=== PATIENT | female | born 1990 | race Caucasian/White ===

== ENCOUNTER 2018-01-17 15:28 | Emergency (ER) | payer BC ==
[~2018-01-17] VITALS: Ht 170.2 cm; Wt 72.1 kg
[~2018-01-17 15:28] MED LIST: MTR600X PO; PRENTAB26 PO
[2018-01-17 15:34] VITALS: TEMP 36.9; Ht 170.2 cm; Wt 72.1 kg
[2018-01-17] MEDS ORDERED: KETOROLAC TROMETHAMINE 30 MG/ML VIAL IV STA (16:42)
[2018-01-17] MEDS ORDERED: SODIUM CHLORIDE 0.9% 1000ML 1,000 ML IV SCH (16:42)
[2018-01-17] MEDS ORDERED: SODIUM CHLORIDE 0.9% 1000ML 1,000 ML IV STA (16:42)
[2018-01-17 17:00] LABS: BASO % 0.2 %; BASO ABS # 0.01 K/uL (0-0.2); EOS % 0.7 %; EOS ABS # 0.04 K/uL (0-0.5); HEMOGLOBIN 14.7 g/dL (12.0-16.0); IG# 0.01 K/uL (0.00-0.02); LYMPH % 26.3 %; LYMPH ABS # 1.49 K/uL (1.2-3.4); MEAN CELL VOLUME 91.7 fL (80-100); MEAN CORPUSCULAR HEMOGLOBIN 32.1 pg (25-34); MEAN PLATELET VOLUME 10.5 fL (7.4-10.4); MONO % 8.5 %; MONO ABS # 0.48 K/uL (0.11-0.59); NEUT % 64.1 %; NEUT ABS # 3.63 K/uL (1.4-6.5); PLATELET COUNT 215 K/uL (130-400); RED CELL DISTRIBUTION WIDTH CV 12.5 % (11.5-14.5); RED CELL DISTRIBUTION WIDTH SD 42.3 fL (36.4-46.3); WHITE BLOOD COUNT 5.66 K/uL (4.8-10.8)
[2018-01-17] MEDS ORDERED: MULT-506 PO (17:06)
[2018-01-17] MEDS ORDERED: NORETAB29 PO (17:06)
--- NOTE | 2018-01-17 17:13 | DIAGNOSTIC IMAGING REPORT ---
CHEST ONE VIEW PORTABLE CLINICAL HISTORY: 27 years-old Female presenting with Stroke. TECHNIQUE: Portable upright AP view of the chest was obtained. COMPARISON: None. FINDINGS: Cardiomediastinal silhouette normal. No focal opacity. No large effusion or pneumothorax. Osseous structures normal. Upper abdomen normal. IMPRESSION: 1. No acute cardiopulmonary disease. Electronically signed by: Boy Hawthorne M.D. 01/17/2018 5:12 PM Dictated Date/Time: 01/17/2018 5:11 PM
[2018-01-17 17:21] LABS: PTT PATIENT 23.9 SECONDS (21.0-31.0)
[2018-01-17 17:24] LABS: BLOOD UREA NITROGEN 18 mg/dl (7-18); CALCIUM 8.9 mg/dl (8.5-10.1); CARBON DIOXIDE 26 mmol/L (21-32); CREATININE 1.09 mg/dl (0.60-1.20); GLUCOSE 85 mg/dl (70-99); POTASSIUM 3.5 mmol/L (3.5-5.1); SODIUM 138 mmol/L (136-145)
[2018-01-17 17:29] LABS: CKMB 5.9 ng/ml (0.5-3.6)
--- NOTE | 2018-01-17 17:29 | DIAGNOSTIC IMAGING REPORT ---
CT HEAD WITHOUT CONTRAST (CT) CLINICAL HISTORY: Stroke RIGHT-SIDED NUMBNESS. SPEECH DIFFICULTY. COMPARISON STUDY: No previous studies for comparison. TECHNIQUE: Axial CT of the brain is performed from the vertex to the skull base. IV contrast was not administered for this examination. A dose lowering technique was utilized adhering to the principles of ALARA. CT DOSE: 537.48 mGy.cm FINDINGS: No intra or extra-axial mass lesions are visualized. There is no CT evidence of acute cortical infarction. There is no evidence of midline shift. There is no acute hemorrhage. No calvarial fractures are visualized. There is no evidence of pathologic ventricular dilatation. There is sphenoid sinus mucosal thickening. IMPRESSION: Sphenoid sinus mucosal thickening. Otherwise normal noncontrast head CT. Electronically signed by: Camron Cerna M.D. 01/17/2018 5:28 PM Dictated Date/Time: 01/17/2018 5:27 PM
[2018-01-17 21:49] VITALS: BP 116/70; PULSE 80; O2SAT 100
--- NOTE | 2018-01-17 21:56 | DIAGNOSTIC IMAGING REPORT ---
BRAIN WITHOUT CONTRAST CLINICAL HISTORY: 27 years-old Female presenting with r sided paraesthesias . TECHNIQUE: Multisequence, multiplanar MR imaging of the brain was performed without the use of intravenous contrast. IV contrast: None. COMPARISON: Noncontrast CT head performed earlier the same day. FINDINGS: Ventricles and sulci normal in size. Brain parenchyma normal in appearance with preserved hampton-white differentiation. No mass effect or midline shift. No restricted diffusion to suggest acute ischemia. No hemorrhage. No extra-axial fluid collection. T2 skull base flow voids preserved. Mucosal thickening in the sphenoid sinus is noted. Bone marrow signal intensity within the calvarium within normal limits. IMPRESSION: 1. No acute intracranial abnormality. Electronically signed by: Boy Hawthorne M.D. 01/17/2018 9:54 PM Dictated Date/Time: 01/17/2018 9:52 PM
--- NOTE | 2018-01-17 23:41 | EMERGENCY ROOM VISIT NOTE ---
History Report prepared by Xin: Cathie Onofre Under the Supervision of: Dr. Warner Yoon D.O. First contact with patient: 16:30 Chief Complaint: NEURO SYMPTOMS Stated Complaint: WHOLE RT SIDE NUMBNESS, LOSS OF SPEECH, NAUSEA, KRAMER Nursing Triage Summary: Pt ambulatory to triage with steady upright gait. Pt states, "I was cleaning a pts tooth and in the middle of it the entire right side of my body went numb. I couldn't talk. My right side of my lip went numb. I couldn't really see out of my right eye. It eventually went away in 15 mins. Now I have a dry mouth, nausea and h/a. This is the third time this has happened. In Jul last year I had a migraine. I thought it might be my control so they switched. It happened in Nov to the left side. Today was the worst." Has not been seen previously for sx. Pt speaking with clear speech in triage. A & O x 4. History of Present Illness The patient is a 27 year old female who presents to the Emergency Room with complaints of an episode of right sided numbness earlier today. The patient works as a dental hygienist. She was cleaning a patient's teeth when her right hand started going numb. Then the numbness spread throughout the right side of her body. The right side of her lips went numb. Then then started feeling faint like she might pass out. She was trying to speak, but the words would not come out. She was told she appeared pale. She drank some juice and the faint feeling passed. After 15 minutes, the numbness resolved. She then developed some blurred vision in her right eye and felt nauseous. These symptoms have resolved. She currently complains of a mild headache on the left side. She denies any weakness, chest pain, SOB, abdominal pain, nausea, vomiting, or urinary symptoms. She has experienced these symptoms 2 times before. She had the same symptoms on the left side while she was driving 2 months ago. She also had these symptoms 6 months ago. At that time her control pill was changed to Loestrin FE. Her last menstrual period was 2 weeks ago. Patient denies diabetes, hypertension, hyperlipidemia, CAD, history of sudden at a young age. She quit smoking 5 years ago. She denies any history of migraines. Source of History: patient Onset: earlier today Position: arm (right) Quality: numbness Timing: other (episodic) Associated Symptoms: + headache, + nausea (resolved), No chest pain, No SOB , No vomiting, No abdominal pain, No urinary symptoms, No weakness Review of Systems See HPI for pertinent positives & negatives. A total of 10 systems reviewed and were otherwise negative. Past Medical & Surgical Medical Problems: (1) Family History Diabetes mellitus Social History Smoking Status: Former Smoker Occupation Status: employed Current/Historical Medications Scheduled Multivitamin (Multivitamin), 1 TAB PO DAILY Norethindrone Acetate-Ethinyl (Lo Loestrin Fe), 1 TAB PO DAILY Allergies Coded Allergies: Sulfa Antibiotics (Verified Allergy, Mild, HIVES, 01/17/18) as a child Physical Exam Vital Signs Date Time Temp Pulse Resp B/P (MAP) Pulse Ox O2 Delivery O2 Flow Rate FiO2 01/17/18 21:49 80 15 116/70 100 Room Air 01/17/18 20:36 74 16 118/77 99 Room Air 01/17/18 18:54 94 20 122/74 100 Room Air 01/17/18 17:01 80 18 128/90 98 Room Air 01/17/18 17:01 64 18 112/72 01/17/18 16:37 80 01/17/18 15:34 36.9 105 18 147/95 98 Room Air Physical Exam GENERAL: Sitting up in bed, alert, well appearing, well nourished, no distress, non-toxic EYE EXAM: normal conjunctiva. PERRL and EOM's intact. OROPHARYNX: no exudate, no erythema, lips, buccal mucosa, and tongue normal and mucous membranes are moist NECK: supple, no nuchal rigidity, no adenopathy, non-tender LUNGS: Clear to auscultation. Normal chest wall mechanics HEART: no murmurs, S1 normal and S2 normal ABDOMEN: abdomen soft, non-tender, normo-active bowel sounds, no masses, no rebound or guarding. BACK: Back is symmetrical on inspection and there is no deformity, no midline tenderness, no CVA tenderness. SKIN: no rashes and no bruising UPPER EXTREMITIES: upper extremities are grossly normal. LOWER EXTREMITIES: No pitting edema. NEURO EXAM: Normal sensorium, cranial nerves II-XII intact, normal speech, no weakness of arms, no weakness of legs. No drift. Finger to nose intact. Gross sensation intact. Medical Decision & Procedures ER Provider Diagnostic Interpretation: Radiology results as stated below per my review and the radiologist's interpretation: CHEST ONE VIEW PORTABLE CLINICAL HISTORY: 27 years-old Female presenting with Stroke. TECHNIQUE: Portable upright AP view of the chest was obtained. COMPARISON: None. FINDINGS: Cardiomediastinal silhouette normal. No focal opacity. No large effusion or pneumothorax. Osseous structures normal. Upper abdomen normal. IMPRESSION: 1. No acute cardiopulmonary disease. Electronically signed by: Boy Hawthorne M.D. 01/17/2018 5:12 PM Dictated Date/Time: 01/17/2018 5:[address] HEAD WITHOUT CONTRAST (CT) CLINICAL HISTORY: Stroke RIGHT-SIDED NUMBNESS. SPEECH DIFFICULTY. COMPARISON STUDY: No previous studies for comparison. TECHNIQUE: Axial CT of the brain is performed from the vertex to the skull base. IV contrast was not administered for this examination. A dose lowering technique was utilized adhering to the principles of ALARA. CT DOSE: 537.48 mGy.cm FINDINGS: No intra or extra-axial mass lesions are visualized. There is no CT evidence of acute cortical infarction. There is no evidence of midline shift. There is no acute hemorrhage. No calvarial fractures are visualized. There is no evidence of pathologic ventricular dilatation. There is sphenoid sinus mucosal thickening. IMPRESSION: Sphenoid sinus mucosal thickening. Otherwise normal noncontrast head CT. Electronically signed by: Camron Cerna M.D. 01/17/2018 5:28 PM Dictated Date/Time: 01/17/2018 5:27 PM BRAIN WITHOUT CONTRAST CLINICAL HISTORY: 27 years-old Female presenting with r sided paraesthesias . TECHNIQUE: Multisequence, multiplanar MR imaging of the brain was performed without the use of intravenous contrast. IV contrast: None. COMPARISON: Noncontrast CT head performed earlier the same day. FINDINGS: Ventricles and sulci normal in size. Brain parenchyma normal in appearance with preserved hampton-white differentiation. No mass effect or midline shift. No restricted diffusion to suggest acute ischemia. No hemorrhage. No extra-axial fluid collection. T2 skull base flow voids preserved. Mucosal thickening in the sphenoid sinus is noted. Bone marrow signal intensity within the calvarium within normal limits. IMPRESSION: 1. No acute intracranial abnormality. Electronically signed by: Boy Hawthorne M.D. 01/17/2018 9:54 PM Dictated Date/Time: 01/17/2018 9:52 PM Laboratory Results 01/17/18 16:50 Red Blood Count 4.58, Mean Corpuscular Volume 91.7, Mean Corpuscular Hemoglobin 32.1, Mean Corpuscular Hemoglobin Concent 35.0, Mean Platelet Volume 10.5, Neutrophils (%) (Auto) 64.1, Lymphocytes (%) (Auto) 26.3, Monocytes (%) (Auto) 8.5, Eosinophils (%) (Auto) 0.7, Basophils (%) (Auto) 0.2, Neutrophils # (Auto) 3.63, Lymphocytes # (Auto) 1.49, Monocytes # (Auto) 0.48, Eosinophils # (Auto) 0.04, Basophils # (Auto) 0.01 01/17/18 16:50 Test 01/17/18 16:05 01/17/18 16:50 Urine Test NEG (NEG) White Blood Count 5.66 K/uL (4.8-10.8) Red Blood Count 4.58 M/uL (4.2-5.4) Hemoglobin 14.7 g/dL (12.0-16.0) Hematocrit 42.0 % (37-47) Mean Corpuscular Volume 91.7 fL (80-100) Mean Corpuscular Hemoglobin 32.1 pg (25-34) Mean Corpuscular Hemoglobin Concent 35.0 g/dl (32-36) Platelet Count 215 K/uL (130-400) Mean Platelet Volume 10.5 fL (7.4-10.4) Neutrophils (%) (Auto) 64.1 % Lymphocytes (%) (Auto) 26.3 % Monocytes (%) (Auto) 8.5 % Eosinophils (%) (Auto) 0.7 % Basophils (%) (Auto) 0.2 % Neutrophils # (Auto) 3.63 K/uL (1.4-6.5) Lymphocytes # (Auto) 1.49 K/uL (1.2-3.4) Monocytes # (Auto) 0.48 K/uL (0.11-0.59) Eosinophils # (Auto) 0.04 K/uL (0-0.5) Basophils # (Auto) 0.01 K/uL (0-0.2) RDW Standard Deviation 42.3 fL (36.4-46.3) RDW Coefficient of Variation 12.5 % (11.5-14.5) Immature Granulocyte % (Auto) 0.2 % Immature Granulocyte # (Auto) 0.01 K/uL (0.00-0.02) Prothrombin Time 10.5 SECONDS (9.0-12.0) Prothromb Time International Ratio 1.0 (0.9-1.1) Activated Partial Thromboplast Time 23.9 SECONDS (21.0-31.0) Partial Thromboplastin Ratio 0.9 Anion Gap 6.0 mmol/L (3-11) Est Creatinine Clear Calc Drug Dose 76.1 ml/min Estimated GFR () 81.1 Estimated GFR (Non- 70.0 BUN/Creatinine Ratio 16.4 (10-20) Calcium Level 8.9 mg/dl (8.5-10.1) Magnesium Level 2.1 mg/dl (1.8-2.4) Total Creatine Kinase 289 U/L (26-192) Creatine Kinase MB 5.9 ng/ml (0.5-3.6) Creatine Kinase MB Ratio 2.0 (0-3.0) Troponin I < 0.015 ng/ml (0-0.045) Laboratory results per my review. Medications Administered Medications (Trade) Dose Ordered Sig/Genaro Route Start Time Stop Time Status Last Admin Dose Admin Sodium Chloride 1,000 ml @ 50 mls/hr Q20H IV 01/17/18 16:42 01/17/18 22:33 DC 01/17/18 17:49 50 MLS/HR Ketorolac Tromethamine (Toradol Inj) 30 mg NOW STAT IV 01/17/18 16:42 01/17/18 16:44 DC 01/17/18 17:48 30 MG Sodium Chloride 1,000 ml @ 999 mls/hr Q1H1M STAT IV 01/17/18 16:42 01/17/18 17:42 DC 01/17/18 16:42 999 MLS/HR ECG Per My Interpretation Indication: weakness Rate (beats per minute): 65 Rhythm: sinus rhythm Findings: no ectopy, other (normal axis) ED Course ED COURSE: Vital signs were reviewed and showed hypertension. The patients medical record was reviewed The above diagnostic studies were performed and reviewed. ED treatments and interventions as stated above. 1634: The patient was evaluated in room C11B. A complete history and physical examination was performed. 1642: Sodium Chloride 1000 ml @ 999 mls/hr IV, Toradol Inj 30 mg IV, Sodium Chloride 1000 ml @ 50 mls/hr IV. 1806: I discussed the patient's case with Jose Chilel neurology. She recommends MRI. 220: Upon reevaluation, the patient is resting comfortably. I discussed my findings with the patient and she understands and agrees with the treatment plan. Based on the patients age, coexisting illnesses, exam and lab findings the decision to treat as an outpatient was made. The patient remained stable while under my care. The patient appeared well at the time of discharge. Medical Decision Differential Diagnosis includes but is not limited to ischemic Stroke, hemorrhagic stroke, bells palsy, mass, neoplasm, migraine headache, seizure, subarachnoid hemorrhage, TIA, and transient global amnesia. Patient is a 27-year-old female who presents the ER for 15 minute episode of right-sided paresthesias which involved the face and right upper extremity. No focal weakness. She did have a headache on the contralateral side. Describes as a throbbing. CBC along with BMP and troponin was normal. Urine negative. CT head and chest x-ray unremarkable. History did appear to be consistent with a migraine. Discussed with neurology and they agreed. They did recommend brain MRI. MRI was negative. Patient was updated at bedside. Recommended stopping control. Patient will follow up with neurology as an outpatient. Discussed with Pt concerning signs and symptoms to watch out for. Pt was instructed to follow up with their PCP and discussed with the patient their option to return to the ED at anytime for persistent or worsening symptoms. The appropriate anticipatory guidance and out-patient management, including indications for return to the emergency department, were explained at length to the patient and understood. Medication Reconcilliation Current Medication List: was personally reviewed by me Blood Pressure Screening Patient's blood pressure: Elevated blood pressure Blood pressure disposition: Elevated BP felt to be situational Consults Time Called: 1800 Consulting Physician: Jose Chilel neurology Returned Call: [phone] I discussed the patient's case with him. She recommends MRI. Impression Primary Impression: Headache Additional Impression: Arm paresthesia, right Scribe Attestation The scribe's documentation has been prepared under my direction and personally reviewed by me in its entirety. I confirm that the note above accurately reflects all work, treatment, procedures, and medical decision making performed by me. Departure Information Dispostion Home / Self-Care Referrals Mady Obando (PCP) Pat Santo M.D. Forms HOME CARE DOCUMENTATION FORM, IMPORTANT VISIT INFORMATION, WORK / SCHOOL INSTRUCTIONS Patient Instructions ED Headache Migraine, Headache Pain, [facility] Additional Instructions Please follow up with your primary care doctor with in the next 24 hours. Any worsening of your symptoms, please return to the ED immediately. This includes any fevers greater than 100.4, worsening pain, chest pain, shortness breath, persistent nausea, vomiting, unable to eat or drink, weakness or numbness in her arms or legs, change in vision, or any other concerning signs or symptoms from your standpoint. Please take Tylenol or Motrin as needed for pain. Please follow-up with neurology as listed below. Please stop your control. Problem Qualifiers Primary Impression: Headache Headache type: unspecified Headache chronicity pattern: acute headache Intractability: not intractable Qualified Codes: R51 - Headache
== END 2018-01-17 22:15 | disposition home or self-care (01) ==
LOC: C.EDB 15:31 → C.EDC 22:15
DX: R51 Headache (principal); R20.0 Anesthesia of skin; Z87.891 Personal history of nicotine dependence; Z88.2 Allergy status to sulfonamides

== ENCOUNTER 2022-06-03 19:22 | Inpatient (IN) ==
[2022-06-03] MEDS ORDERED: LIDOCAINE 1% LOCAL 20 ML VIAL INFIL PRN (20:03)
[2022-06-03] MEDS ORDERED: OXYTOCIN 30 UNITS/500 ML BAG IV PRN ×2 (20:03)
[2022-06-03 20:32] LABS: Hematocrit (blood only) 35.6 % (34.1-44.9); Hemoglobin 12.1 g/dl (12.0-16.0); Mean Corpuscular Hemoglobin 30.9 pg (25.0-34.0); Mean Corpuscular Volume 90.8 fL (80.0-100.0); Mean Platelet Volume 12.4 fL (9.4-12.3); Platelet Count 164 K/uL (130-400); RDW Coefficient of Variation 12.2 % (11.5-14.5); RDW Standard Deviation 40.6 fL (36.4-46.3); Red Blood Count 3.92 M/uL (3.93-5.22)
[2022-06-03] MEDS: LACTATED RINGER'S 1,000 ML IV PRN (22:20)
[2022-06-03] MEDS ORDERED: fentaNYL 2MCG/ML ROPIVACAINE 1.25MG/ML 100 ML BAG EPI ONE (23:03)
[2022-06-03] MEDS ORDERED: LIDOCAINE 2%/EPINEPHRINE 1:200,000 20 ML SDV ONE (23:03)
[2022-06-03] MEDS ORDERED: SODIUM CHLORIDE 0.9% INJ 10 ML VIAL ONE (23:03)
[2022-06-03] MEDS ORDERED: ePHEDrine sulfate 50 MG/ML AMP ONE (23:03)
[2022-06-03] MEDS ORDERED: BUPIVACAINE 0.25% 30 ML VIAL ONE (23:03)
[2022-06-03] MEDS ORDERED: fentaNYL citrate 100 MCG/2 ML VIAL ONE (23:03)
[2022-06-03] MEDS ORDERED: NALOXONE HCL 1 MG in SODIUM CHLORIDE 0.9% 1000ML 1,000 ML IV PRN (23:15)
[2022-06-03] MEDS ORDERED: ePHEDrine sulfate 50 MG/ML AMP IV PRN (23:15)
[2022-06-03] MEDS ORDERED: NALBUPHINE HCL INJ 10 MG/ML AMP IV PRN (23:15)
[2022-06-03] MEDS ORDERED: fentaNYL 2MCG/ML ROPIVACAINE 1.25MG/ML 100 ML BAG EPI PRN (23:15)
[2022-06-03] MEDS ORDERED: diphenhydrAMINE 50 MG/ML VIAL IV PRN (23:15)
[2022-06-03] MEDS ORDERED: NALOXONE HCL 0.4 MG/1 ML VIAL/CARP IV PRN (23:15)
--- NOTE | 2022-06-03 23:15 | Anesthesiology Consultation ---
Date of Service June 03, 2022 Assessment & Plan (1) Encounter for pre-operative examination: Chart Review Chart Review: Patient NOT seen in Pre Admission Testing and Acceptable Risk for Labor Epidural Consults Requested none History Height/Weight Height: 5 ft 7 in Weight: 99.79 kg Allergies Allergy/AdvReac Type Severity Reaction Status Date / Time Sulfa (Sulfonamide Allergy Mild HIVES Verified 06/03/22 19:48 Antibiotics) Medications Home Medications Medication Instructions Recorded Confirmed Last Taken Multivitamin 1 tab PO DAILY #0 tabs 01/17/18 06/03/22 06/03/22 sertraline 50 mg tablet (Zoloft) 50 mg PO DAILY 03/23/22 06/03/22 06/03/22 Active Medications Generic Name Dose Route Start Last Admin Trade Name Freq PRN Reason Stop Dose Admin Oxytocin 30 units in 500 mls @ 2 mls/hr 06/03/22 20:03 06/03/22 22:19 Pitocin IV 06/05/22 20:02 0.12 units/hr .Q24H PRN 2 mls/hr Labor Induction/Augmentation Administration Protocol 0.12 UNITS/HR Lactated Ringer's 1,000 mls @ 125 mls/hr 06/03/22 20:03 06/03/22 22:20 Lr IV 06/05/22 20:02 125 mls/hr .Q8H PRN Administration L&D Protocol Protocol Past Medical History Medical History Anxiety Smoker Social History Smoking Status: Former smoker Hx Alcohol Use: No Hx Substance Use: No Physical Exam Vital Signs Last Vital Signs Temp 98.4 F 06/03/22 21:32 Pulse 80 06/03/22 22:27 Resp 18 06/03/22 21:32 BP 143/96 H 06/03/22 22:27 Testing Laboratory Results 06/03/22 20:10
[2022-06-04] MEDS: LACTATED RINGER'S 1,000 ML IV PRN (02:49)
[2022-06-04] MEDS ORDERED: miSOPROStoL 200 MCG TAB ONE (04:16)
[2022-06-04] MEDS ORDERED: ACETAMINOPHEN 325 MG TAB PO PRN (04:33)
[2022-06-04] MEDS ORDERED: HYDROCORTISONE ACETATE 25 MG SUPP PR PRN (04:33)
[2022-06-04] MEDS ORDERED: miSOPROStoL 200 MCG TAB PR ONE (04:33)
[2022-06-04] MEDS ORDERED: OXYTOCIN 30 UNITS/500 ML BAG IV PRN (04:33)
[2022-06-04] MEDS ORDERED: BENZOCAINE 20% AER SPR 82.5 GM CAN EXT PRN (04:33)
[2022-06-04] MEDS ORDERED: bisacodyL 10 MG SUPP PR PRN (04:33)
[2022-06-04] MEDS ORDERED: DIPHTHERIA/TETANUS/PERTUSSIS 0.5 ML SYR/VIAL IM ONE (04:33)
--- NOTE | 2022-06-04 05:04 | Delivery Summary ---
DATE OF SERVICE: 06/04/2022. DELIVERY NOTE The patient delivered a live in left occiput anterior presentation. There was no nuchal cord. Infant was delivered and placed on mother's abdomen. Delayed cord clamp was performed. 's w eight and Apgars are in the pediatric record. Cord blood was obtained. Placenta was spontaneously d elivered. Inspection of the placenta shows a 3-vessel cord. Placenta was grossly normal. Estimated blood loss was 400 mL. Inspection of the perineum shows a first-degree laceration, which w as repaired with 3-0 Vicryl. There was good hemostasis. All instruments were removed from the vagina and accounted for x2 including sponges, needles, and ret ractors. The patient is sent to recovery in stable condition. Job ID: [id number]
--- NOTE | 2022-06-04 08:12 | Anesthesia Procedure Note ---
Date of Service June 04, 2022 Anesthesia Post Epidural Note Vital Signs Vital Signs: Temp Pulse Resp BP Pulse Ox 36.8 C 93 H 18 131/88 98 06/04/22 03:00 06/04/22 07:00 06/04/22 05:45 06/04/22 07:00 06/04/22 04:17 Notes Mental Status: alert / awake / arousable and participated in evaluation Nausea / Vomiting: adequately controlled Pain: adequately controlled Airway Patency, RR, SpO2: stable & adequate BP & HR: stable & adequate Hydration State: stable & adequate Anesthetic Complications: no major complications apparent and Pt Satisfied with anesthetic care Epidural: Removed without complications and With tip intact
[2022-06-04] MEDS: SERTRALINE HCL 50 MG TABLET PO SCH (08:44)
[2022-06-04] MEDS: PRENATAL VITAMIN 1 TAB PO SCH (08:45)
[2022-06-04] MEDS: IBUPROFEN 600 MG TAB PO PRN ×2 (08:45→15:33)
[2022-06-04] MEDS: DOCUSATE SODIUM 100 MG CAP PO SCH ×2 (08:45→20:13)
[2022-06-04] MEDS ORDERED: Nursing to Pharmacy Communication SCH (14:00)
[2022-06-04] MEDS ORDERED: MEASLES, MUMPS & RUBELLA VIRUS VIAL SQ ONE (15:57)
[2022-06-04] MEDS ORDERED: oxyCODONE/ACETAMINOPHEN 5mg/325mg TAB PO PRN (18:47)
[2022-06-05] MEDS: IBUPROFEN 600 MG TAB PO PRN ×2 (00:21→08:22)
[2022-06-05 06:47] LABS: Hematocrit (blood only) 37.4 % (34.1-44.9); Hemoglobin 12.4 g/dl (12.0-16.0); Mean Corpuscular Hemoglobin 30.7 pg (25.0-34.0); Mean Corpuscular Hgb Conc 33.2 g/dL (32.0-36.0); Mean Corpuscular Volume 92.6 fL (80.0-100.0); Mean Platelet Volume 12.4 fL (9.4-12.3); Platelet Count 150 K/uL (130-400); RDW Coefficient of Variation 12.6 % (11.5-14.5); RDW Standard Deviation 42.7 fL (36.4-46.3); Red Blood Count 4.04 M/uL (3.93-5.22); White Blood Count 7.33 K/ul (4.8-10.8)
[2022-06-05] MEDS: SERTRALINE HCL 50 MG TABLET PO SCH (08:22)
[2022-06-05] MEDS: PRENATAL VITAMIN 1 TAB PO SCH (08:22)
[2022-06-05] MEDS: DOCUSATE SODIUM 100 MG CAP PO SCH (08:22)
--- NOTE | 2022-06-05 11:09 | Obstetrical Progress Note ---
Date of Service June 05, 2022 Subjective Ambulation: ambulating normally Voiding: no voiding problems Passing Gas:: Yes Diet Tolerance:: regular diet Lochia:: Small Feeding Type:: breast feeding Current Pain Level(1-10): 0 doing well. plans for d/c today Physical Exam Constitutional WD/WN, vitals as above Gastrointestinal (Abdomen) Inspection/Auscultation: abdomen normal to inspection abdomen soft and non-tender. fundus firm below U Skin no rashes, warm and dry Neurologic patellar DTR's 2+ bilat, sensation intact Psychiatric A+Ox3, euthymic affect Results & Data ([facility]) Vital Signs (Past 12 Hours) Vital Signs Temp Pulse Resp BP Pulse Ox O2 Del Method 06/05/22 08:25 36.8 C 80 18 113/78 99 Room Air 06/05/22 04:20 36.7 C 73 16 111/74 98 Room Air 06/05/22 00:15 36.9 C 67 16 135/85 99 Room Air Laboratory Results 06/03/22 06/03/22 06/05/22 20:10 Unknown 05:59 WBC 9.10 7.33 RBC 3.92 L 4.04 Hgb 12.1 12.4 Hct 35.6 37.4 MCV 90.8 92.6 MCH 30.9 30.7 MCHC 34.0 33.2 RDW Std Deviation 40.6 42.7 RDW Coeff of Jennifer 12.2 12.6 Plt Count 164 150 MPV 12.4 H 12.4 H SARS-CoV-2, RNA, NAAT NEGATIVE
[2022-06-05] MEDS ORDERED: bisacodyL 5 MG TABEC PO SCH (20:00)
== END 2022-06-05 13:13 | disposition home or self-care (01) | DRG 807 ==
LOC: OPB 19:22 → 4S1 19:23 → 4E2 06-04 09:10